=== PATIENT | male | born 1995 | race Caucasian/White ===

== ENCOUNTER → 2018-03-11 | Outpatient (CLI) | payer OTHER | LOC: ULTRA 11:00 | DX: K80.20 Calculus of gallbladder without cholecystitis without obstruction (principal); R10.11 Right upper quadrant pain ==

== ENCOUNTER 2018-03-20 05:33 | Day surgery (SDC) | payer OTHER ==
[~2018-03-20] VITALS: Ht 180.3 cm; Wt 135.6 kg
--- NOTE | ~2018-03-20 | PATH ---
[facility] [address] [address] PATHOLOGY RPT PROCEDURE Name: MANUEL MONTOYA Room #: DEP [facility] [place] M.R.#: [id number] Admission: 03/20/18 Date of : 89 Discharge: 03/20/18 Report #: [id number] Path Case #: [id number] [facility] Accession Number: [id number] . 01 Material submitted: . GALLBLADDER . 01 Clinical history: . Chronic cholecystitis with cholelithiasis. . 02 Diagnosis: "Gallbladder", cholecystectomy: - Chronic cholecystitis with cholesterolosis. - Cholelithiasis. (CLW:dorinda; 03/23/2018) QMS/03/23/2018 . 02 Electronically signed: . Shadia Najera MD, Pathologist NPI- [id number] . 01 Gross description: . Received in formalin labeled "Manuel Montoya, gallbladder" is a previously opened cholecystectomy specimen which measures 8.7 x 3.0 x 1.3 cm. The serosa is green-barrientos and smooth. The mucosa is green-yellow and velvety with extensive yellow stippling. The average wall thickness measures 0.2 cm. No polyps or masses are identified. Present within the container are two barrientos-yellow bosselated calculi which measure 1.5 x 1.2 x 1.2 cm and 1.5 x 1.3 x 1.0 cm. Side Sawyer sections of the fundus and body as well as the cystic duct margin are submitted in cassette A1. ([facility] [place]; 03/22/2018) SYC/SYC . 02 Pathologist provided ICD-10: K80.10 . 02 CPT . [id number] Performed at: [address], [place] [id number] MD Anthony Calabrese MD Phone: [phone] Performed at: [address] [id number] MD Millie Hilario MD Phone: [phone]
[~2018-03-20 05:33] MED LIST: SUMATRIPTAN SU100 MG PO
[2018-03-20 08:03] VITALS: BP 123/86
[2018-03-20] MEDS ORDERED: HYDROCODONE-AP1 EAC6 PO (09:37)
[2018-03-20] MEDS ORDERED: ONDANSETRON HCL4 M2 PO (09:37)
[2018-03-20 10:02] VITALS: BP 123/86
== END 2018-03-20 11:45 | disposition home or self-care (01) ==
LOC: TBA 05:33 → OR 05:33 → TBA 05:34 → OR 10:52
DX: K80.10 Calculus of gallbladder with chronic cholecystitis without obstruction (principal); G43.909 Migraine, unspecified, not intractable, without status migrainosus; K21.9 Gastro-esophageal reflux disease without esophagitis; F17.290 Nicotine dependence, other tobacco product, uncomplicated; Z98.890 Other specified postprocedural states; Z79.899 Other long term (current) drug therapy
CPT/HCPCS: 50010; 50101; 50249; 50411; 50555; 50558; 50962; 51489; 51975; 52265; 52266; 53307; 53310; 54022; 54118; 55245; 55317; 56462; 56525; 56526; 62110; 62900; 70005

== ENCOUNTER 2018-09-25 17:39 | Inpatient (IN) | payer OTHER ==
[~2018-09-25] VITALS: Ht 180.3 cm; Wt 145.1 kg
[2018-09-25 17:39] VITALS: BP 172/87
[~2018-09-25 17:39] MED LIST changes: +HYDROCODONE-AP1 EAC6 PO; +ONDANSETRON HCL4 M2 PO
--- NOTE | 2018-09-25 18:15 | NUR ---
ATTEMPT X 1 FOR IV WITHOUT SUCESS
[2018-09-25 18:20] LABS: URINE BILIRUBIN NEGATIVE (Negative); URINE BLOOD NEGATIVE (Negative); URINE CLARITY CLEAR; URINE COLOR YELLOW; URINE GLUCOSE-RANDOM* NEGATIVE (Negative); URINE KETONES NEGATIVE (Negative); URINE LEUKOCYTES-REFLEX NEGATIVE (Negative); URINE NITRITE-REFLEX NEGATIVE (Negative); URINE PROTEIN (DIPSTICK) NEGATIVE (Negative); URINE SPECIFIC GRAVITY > 1.030 (1.005-1.035); URINE UROBILINOGEN 0.2 E.U./dl (0.2-1.0)
[2018-09-25 18:26] LABS: ABSOLUTE NEUTROPHILS 5.3 thou/uL (1.4-8.2); BASOPHILS 0.8 % (0.0-2.0); EOSINOPHILS 1.4 % (0.0-3.0); HEMATOCRIT 44.8 % (42.0-52.0); HEMOGLOBIN 15.5 gm/dL (14.0-18.0); LYMPHOCYTES 27.6 % (24.0-44.0); MCH 27.3 pg (26.0-34.0); MCHC 34.6 g/dL (28.0-37.0); MCV 78.8 fL (80.0-100.0); MONOCYTES 7.8 % (1.0-8.0); PLATELET COUNT 230 thou/uL (150-400); POLYS 62.4 % (36.0-66.0); RBC 5.68 mil/uL (4.50-6.00); RDW 13.2 % (10.5-14.5); WBC 8.6 thou/uL (4.0-11.0)
[2018-09-25 18:34] LABS: CALCIUM 9.6 mg/dL (8.5-10.1); CREATININE 1.1 mg/dL (0.7-1.3)
[2018-09-25 18:45] LABS: TOTAL BILIRUBIN 0.4 mg/dL (<0.1-1.0)
[2018-09-25 20:29] VITALS: BP 115/64
--- NOTE | 2018-09-25 23:53 | NUR ---
PT ADMITED TO UNIT 2030. PT ASSESSMENT AND ADMISSION COMPLETED. PT ORIENTED TO ROOM, CALL LIGHT. IV DRESSING C/D/I. NO SIGNS OF INFILTRATION. PT ALERT ND ORIENTED X4. UP AD LINDA. REPORT PASSED ON TO RELEIVING NURSE.
[2018-09-26 04:49] VITALS: BP 130/72
[2018-09-26 04:57] LABS: POTASSIUM 3.8 mmol/L (3.5-5.1)
[2018-09-26 04:59] LABS: PROTIME 10.5 Seconds (9.3-11.4)
--- NOTE | 2018-09-26 07:00 | NUR ---
SHIFT SUMMARY: PT REMAINS STABLE IN THIS SHIFT. CONTINUE TO BE NPO. PLAN FOR APPENDECTOMY POSSIBLE OPEN BY THIS AM. REPORT HAND OF TO AM SHIFT RN.
[2018-09-26 07:41] VITALS: BP 123/78
[2018-09-26] MEDS ORDERED: ONDANSETRON HCL4 M2 PO (08:31)
[2018-09-26] MEDS ORDERED: NORCO 7.5-3251 EACH PO (08:31)
[2018-09-26 10:00] VITALS: BP 125/69
[2018-09-26 15:45] VITALS: BP 131/70
--- NOTE | 2018-09-26 20:15 | NUR ---
ASSUMED PT CARE AT 0700H. PT A&O X4. PT HAS NO S/S OF DISTESS. PT BEING NPO SINCE MIDNIGHT. PT LATER TAKEN FOR SURGERY. PT CAME BACK WITH 3 LAP DERMBOND SITE C/D/I. PT TOLERATES CLEAR LIQUIDS. PT ABLE TO VERBALIZE PAIN AND CONCERNS. PT CONTINUES TO BE MONITORED FOR SAFETY.
[2018-09-26 21:10] VITALS: BP 132/70
[2018-09-26 21:30] VITALS: BP 132/70
--- NOTE | 2018-09-27 06:47 | NUR ---
PT WAS ENCOURAGED TO GET OUT OF BED AND WALK AT START OF SHIFT.PT WS RELUCTANT BUT LATER AGREED.PT WALKED FOUR LAPS ROUND THE UNIT WITH HIS FRIEND.PAIN MANAGED WITH IV PAIN MED.PT CONT WITH IV ABX.LAP SITES C/D/I.CALL LIGHT WITHIN REACH.
[2018-09-27] MEDS ORDERED: AUGMENTIN 875-1 EACH PO ×2 (08:57→13:57)
[2018-09-27] MEDS ORDERED: MILK OF MA2400 MG/10 PO (13:57)
[2018-09-27] MEDS ORDERED: NORCO 7.5-3251 EACH PO (13:57)
--- NOTE | 2018-09-27 14:28 | NUR ---
ASSUMED PT CARE AT 0700H. PT A&O X4. PT HAS NO S/S OF DISTRESS. PT CONCERN OF DIET. CONSULTED HEALTH CARE PROVIDER AND [facility] DIET. PT TOLERATED BOTH BREAKFAST AND LUNCH 100%. PT HAS TOLERATED PAIN TO 5/10. PT HAS AMBULATED ON THE HALLWAY TO THE ROOM AND BATHROOM. PT 3 LAP DERMABOND SITE C/D/I. PT CURRENTLY ANTICIPATING DC TO HOME. PT CALLS APPROPRIATE. PT CONTINUES TO BE MONITORED FOR SAFETY.
[2018-09-27 14:44] VITALS: BP 132/70
[2018-09-27 15:18] VITALS: BP 132/70
== END 2018-09-27 15:15 | disposition home or self-care (01) | DRG 342 ==
LOC: ER 17:39 → EROBS 19:33 → 4E 20:50
PROVIDERS: Nurse Practitioner Family; ADMIT Internal Medicine
PROC: 0DTJ4ZZ Resection of Appendix, Percutaneous Endoscopic Approach (ICD-10-PCS; principal; 2018-09-26)
DX: K35.80 Unspecified acute appendicitis (principal); K21.9 Gastro-esophageal reflux disease without esophagitis; E66.9 Obesity, unspecified; G43.909 Migraine, unspecified, not intractable, without status migrainosus; Z90.49 Acquired absence of other specified parts of digestive tract; Z68.41 Body mass index [BMI] 40.0-44.9, adult; Z79.899 Other long term (current) drug therapy
CPT/HCPCS: 10084